=== PATIENT | female | born 1970 | race Caucasian/White ===

== ENCOUNTER 2017-04-11 06:11 | Emergency (ER) | payer OTHER ==
[2017-04-11 07:17] LABS: CARBON DIOXIDE 27.3 mmol/L (21-32); CHLORIDE SERUM 106 mmol/L (98-107); CREATININE SERUM 0.8 mg/dL (0.6-1.0); GFR1 > 60 mL/min; GLUCOSE SERUM 98 mg/dL (74-106); POTASSIUM SERUM 3.9 mmol/L (3.5-5.1); SODIUM SERUM 138 mmol/L (136-145)
[2017-04-11 07:19] LABS: BASOPHIL % 0.4 % (0-2); PLATELET COUNT 275 x10^3mcL (130-400); RED CELL DISTRIBUTION WIDTH 12.6 % (11.5-14.5)
[2017-04-11 07:22] LABS: ALKALINE PHOSPHATASE 69 U/L (46-116); ALT/SGPT 38 U/L (14-59); AST/SGOT 21 U/L (15-37); BILIRUBIN TOTAL 0.38 mg/dL (0.20-1.00); TOTAL PROTEIN, SERUM 7.4 g/dL (6.4-8.2)
[2017-04-11 07:34] LABS: ALBUMIN 3.1 g/dL (3.4-5.0)
[2017-04-11 10:20] VITALS: BP 144/85
== END 2017-04-11 10:20 | disposition home or self-care (01) ==
LOC: ED 06:11
PROVIDERS: Emergency Medicine
DX: N93.9 Abnormal uterine and vaginal bleeding, unspecified (principal)
CPT/HCPCS: J7030